=== PATIENT | female | born 1995 | race Caucasian/White ===

== ENCOUNTER 2023-09-08 14:36 | Inpatient (IN) | payer BC, OTHER ==
--- NOTE | 2023-09-08 14:59 | ED ---
General Adult HPI - General Chief complaint: Vaginal Bleeding Stated complaint: Abd pain Time Seen by Provider: 09/08/23 14:50 Source: patient Mode of arrival: ambulatory Limitations: no limitations - History of Present Illness Initial comments: Dictation was produced using [employer] dictation software. please excuse any grammatical, word or spelling errors. Chief Complaint: 28-year-old female presents with vaginal bleeding and pelvic pain History of Present Illness: 28-year-old female she is allegedly 11 weeks with twin gestation. She states that she had an ultrasound recently was told that there is a 20 gestation however 1 baby did not have a heartbeat. Started to have some bleeding and pelvic pain started yesterday. She complains that her pain is worse and it was yesterday but the bleeding has been improved. Her [facility] was booked and wasn't able to have an appointment with her. That's when she was referred to the [facility] for her initial evaluation by OB denies any fever or constitutional symptoms. 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 The ROS documented in this emergency department record has been reviewed and confirmed by me. Those systems with pertinent positive or negative responses have been documented in the HPI. All other systems are other negative and/or noncontributory. - Related Data Home Medications Medication Instructions Recorded Confirmed No Known Home Medications 09/08/23 09/08/23 Allergies Allergy/AdvReac Type Severity Reaction Status Date / Time Sulfa (Sulfonamide Allergy Rash/Hives, Verified 09/08/23 18:13 Antibiotics) swelling Review of Systems ROS Statement: Those systems with pertinent positive or pertinent negative responses have been documented in the HPI. ROS Other: All systems not noted in ROS Statement are negative. Past Medical History Additional Past Medical History / Comment(s): traumatic brain injury History of Any Multi-Drug Resistant Organisms: None Reported Past Surgical History: No Surgical Hx Reported Smoking Status: Never smoker Past Alcohol Use History: None Reported Past Drug Use History: None Reported General Exam - General Exam Comments Initial Comments: PHYSICAL EXAM: General Impression: Alert and oriented x3, not in acute distress HEENT: Normocephalic atraumatic, extra-ocular movements intact, pupils equal and reactive to light bilaterally, mucous membranes moist. Cardiovascular: Heart regular rate and rhythm Chest: Able to complete full sentences, no retractions, no tachypnea Abdomen: abdomen soft, mild tenderness to the lower abdomen, non-distended, no organomegaly Musculoskeletal: Pulses present and equal in all extremities, no peripheral edema Motor: no focal deficits noted Neurological: CN II-XII grossly intact, no focal motor or sensory deficits noted Skin: Intact with no visualized rashes Psych: Anxious Limitations: no limitations Course Vital Signs 09/08/23 09/08/23 09/08/23 14:40 15:00 15:01 Temperature 99.7 F H Pulse Rate 140 H 124 H 121 H Respiratory 24 22 Rate Blood Pressure 97/60 99/73 90/60 O2 Sat by Pulse 100 99 99 Oximetry 09/08/23 09/08/23 09/08/23 15:15 15:30 15:45 Temperature Pulse Rate 114 H 120 H 113 H Respiratory 10 L 21 18 Rate Blood Pressure 90/60 92/54 95/63 O2 Sat by Pulse 99 99 99 Oximetry 09/08/23 09/08/23 09/08/23 16:00 16:15 16:30 Temperature Pulse Rate 102 H 113 H Respiratory 13 15 Rate Blood Pressure 93/60 92/54 98/61 O2 Sat by Pulse 98 99 Oximetry 09/08/23 09/08/23 09/08/23 17:15 17:29 18:00 Temperature Pulse Rate 103 H 97 Respiratory 26 H 17 Rate Blood Pressure 74/49 73/39 79/36 O2 Sat by Pulse Oximetry 09/08/23 18:30 Temperature Pulse Rate Respiratory Rate Blood Pressure 84/62 O2 Sat by Pulse Oximetry - Reevaluation(s) Reevaluation #1: 09/08/23 17:40 I was notified by nurse and approximately 5:30 PM that patient's blood pressure was 73/39. Patient ordered for more fluids. She is reevaluated at the bedside states that her pain is significantly improved. She is resting comfortably no acute distress. Patient will be further resuscitated Reevaluation #2: 09/08/23 19:21 Patient's blood pressure was monitored following that low blood pressure management. Patient resting comfortably states that her pain is improved. Repeat labs were performed. Lactic acidosis improved to 2.5. There is no anion gap. Urinalysis suggests urinary tract infection. Patient treated with ceftriaxone. Medical Decision Making - Medical Decision Making Was pt. sent in by a medical professional or institution (Dr., PA, CLINICAL DATA ABSTRACTOR, urgent care, hospital, or usp...) When possible be specific @ -No Did you speak to anyone other than the patient for history (EMS, parent, family, police, friend...)? What history was obtained from this source @ -No Did you review nursing and triage notes (agree or disagree)? Why? @ -I reviewed and agree with nursing and triage notes Were old charts reviewed (outside hosp., previous admission, EMS record, old EKG, old radiological studies, urgent care reports/EKG's, usp records)? Report findings @ -No old charts were reviewed Differential Diagnosis (chest pain, altered mental status, abdominal pain women, abdominal pain men, vaginal bleeding, musculoskeletal, weakness, fever, dyspnea, syncope, headache, dizziness, GI bleed, back pain, seizure, CVA, palpatations, mental health)? @ -Differential Abdominal Pain Women: Appendicitis, Cholecystitis, diverticulosis, ischemic bowel, pancreatitis, hepatitis, UTI, gastroenteritis, AAA, incarcerated hernia, bowel obstruction, constipation, inflammatory bowel, hepatitis, peptic ulcer disease, splenic infarction, perforated viscus, vulvitis, ovarian torsion, PID, kidney stone, placenta abruption, this is not meant to be an all-inclusive list EKG interpreted by me (3pts min.). @ -None done X-rays interpreted by me (1pt min.). @ -None done CT interpreted by me (1pt min.). @ -None done U/S interpreted by me (1pt. min.). @ -None interpreted by me What testing was considered but not performed or refused? (CT, X-rays, U/S, labs)? Why? @ -None What meds were considered but not given or refused? Why? @ -None Did you discuss the management of the patient with other professionals (professionals i.e. JUAN Chavez, CLINICAL DATA ABSTRACTOR, lab, RT, psych nurse, clinical social work therapist, education site manager, teacher, patient transport officer, case managers)? Give summary @ -Case discussed with Dr. Tai for admission Was smoking cessation discussed for >3mins.? @ -No Was critical care preformed (if so, how long)? @ -No Were there social determinants of health that impacted care today? How? (Homelessness, low income, unemployed, alcoholism, drug addiction, transportation, low edu. Level, literacy, decrease access to med. care, retirement, rehab)? @ -No Was there de-escalation of care discussed even if they declined (Discuss DNR or withdrawal of care, Hospice)? DNR status @ -No What co-morbidities impacted this encounter? (DM, HTN, Smoking, COPD, CAD, Cancer, CVA, ARF, Chemo, Hep., AIDS, mental health diagnosis, sleep apnea, morbid obesity)? @ -None Was patient admitted / discharged? Hospital course, mention meds given and route, prescriptions, significant lab abnormalities, going to OR and other pertinent info. @ -8-year-old female presents to the emergency department for vaginal bleeding, pelvic cramping. She is allegedly 10 or 11 weeks with twin gestation. Vital signs upon arrival was soft. Her blood pressure started to go down slightly. Skin fluids and responded. CBC is unremarkable. Hemoglobin stable. Metabolic panel shows initial lactic acid level V.7 with anion gap acidosis. Beta Quant is 116. Urinalysis consistent with urinary tract infection given positive nitrates and elevated white blood cells. Patient given antibiotics. ultrasound shows no IUP. There is questionable yolk sac.. Patient be admitted for monitoring to observation. Undiagnosed new problem with uncertain prognosis? @ -No Drug Therapy requiring intensive monitoring for toxicity (Heparin, Nitro, Insul in, Cardizem)? @ -No Were any procedures done? @ -No Diagnosis/symptom? Acute, or Chronic, or Acute on Chronic? Uncomplicated (without systemic symptoms) or Complicated (systemic symptoms)? @ -Lactic acidosis, UTI, miscarriage Side effects of treatment? @ -No Exacerbation, Progression, or Severe Exacerbation? @ -No Poses a threat to life or bodily function? How? (Chest pain, [place], [place], pneumonia, PE, COPD, DKA, ARF, appy, cholecystitis, CVA, Diverticulitis, Homicidal, Suicidal, threat to staff... and all critical care pts) @ -yes - Lab Data Result diagrams: 09/08/23 15:00 09/08/23 18:15 Lab Results 09/08/23 09/08/23 09/08/23 Range/Units 14:55 15:00 15:00 WBC 4.3 (3.8-10.6) k/uL RBC 4.05 (3.80-5.40) m/uL Hgb 12.0 (11.4-16.0) gm/dL Hct 35.6 (34.0-46.0) % MCV 87.7 (80.0-100.0) fL MCH 29.6 (25.0-35.0) pg MCHC 33.7 (31.0-37.0) g/dL RDW 13.8 (11.5-15.5) % Plt Count 133 L (150-450) k/uL MPV 7.2 Neutrophils % 94 % Lymphocytes % 4 % Monocytes % 2 % Eosinophils % 0 % Basophils % 0 % Neutrophils # 4.0 (1.3-7.7) k/uL Lymphocytes # 0.2 L (1.0-4.8) k/uL Monocytes # 0.1 (0-1.0) k/uL Eosinophils # 0.0 (0-0.7) k/uL Basophils # 0.0 (0-0.2) k/uL Manual Slide Review Performed PT (10.0-12.5) sec INR (<1.2) APTT (22.0-30.0) sec Sodium 136 L (137-145) mmol/L Potassium 3.4 L (3.5-5.1) mmol/L Chloride 104 (98-107) mmol/L Carbon Dioxide 14 L (22-30) mmol/L Anion Gap 18 mmol/L BUN 15 (7-17) mg/dL Creatinine 0.87 (0.52-1.04) mg/dL Est GFR (CKD-EPI)AfAm >90 (>60 ml/min/1.73 sqM) Est GFR (CKD-EPI)NonAf >90 (>60 ml/min/1.73 sqM) Glucose 105 H (74-99) mg/dL Lactic Ac Sepsis Rflx Plasma Lactic Acid Chadwick (0.7-2.0) mmol/L Calcium 8.4 (8.4-10.2) mg/dL Magnesium 1.5 L (1.6-2.3) mg/dL Total Bilirubin 0.7 (0.2-1.3) mg/dL AST 90 H (14-36) U/L ALT 60 H (4-34) U/L Alkaline Phosphatase 113 (38-126) U/L Total Protein 6.0 L (6.3-8.2) g/dL Albumin 3.3 L (3.5-5.0) g/dL HCG, Quant mIU/mL Urine Color Urine Appearance (Clear) Urine pH (5.0-8.0) Ur Specific [place] (1.001-1.035) Urine Protein (Negative) Urine Glucose (UA) (Negative) Urine Ketones (Negative) Urine Blood (Negative) Urine Nitrite (Negative) Urine Bilirubin (Negative) Urine Urobilinogen (<2.0) mg/dL Ur Leukocyte Esterase (Negative) Urine RBC (0-5) /hpf Urine WBC (0-5) /hpf Ur Squamous Epith Cells (0-4) /hpf Urine Bacteria (None) /hpf Blood Type O Positive Blood Type Confirm Blood Type Recheck No Previous Record Bld Type Recheck Status CABO Indicated Antibody Screen NEGATIVE Spec Expiration Date 09/11/2023 - 235409/08/23 09/08/23 09/08/23 Range/Units 15:00 15:00 15:00 WBC (3.8-10.6) k/uL RBC (3.80-5.40) m/uL Hgb (11.4-16.0) gm/dL Hct (34.0-46.0) % MCV (80.0-100.0) fL MCH (25.0-35.0) pg MCHC (31.0-37.0) g/dL RDW (11.5-15.5) % Plt Count (150-450) k/uL MPV Neutrophils % % Lymphocytes % % Monocytes % % Eosinophils % % Basophils % % Neutrophils # (1.3-7.7) k/uL Lymphocytes # (1.0-4.8) k/uL Monocytes # (0-1.0) k/uL Eosinophils # (0-0.7) k/uL Basophils # (0-0.2) k/uL Manual Slide Review PT 12.2 (10.0-12.5) sec INR 1.1 (<1.2) APTT 27.3 (22.0-30.0) sec Sodium (137-145) mmol/L Potassium (3.5-5.1) mmol/L Chloride (98-107) mmol/L Carbon Dioxide (22-30) mmol/L Anion Gap mmol/L BUN (7-17) mg/dL Creatinine (0.52-1.04) mg/dL Est GFR (CKD-EPI)AfAm (>60 ml/min/1.73 sqM) Est GFR (CKD-EPI)NonAf (>60 ml/min/1.73 sqM) Glucose (74-99) mg/dL Lactic Ac Sepsis Rflx Plasma Lactic Acid Chadwick 5.7 H* (0.7-2.0) mmol/L Calcium (8.4-10.2) mg/dL Magnesium (1.6-2.3) mg/dL Total Bilirubin (0.2-1.3) mg/dL AST (14-36) U/L ALT (4-34) U/L Alkaline Phosphatase (38-126) U/L Total Protein (6.3-8.2) g/dL Albumin (3.5-5.0) g/dL HCG, Quant mIU/mL Urine Color Yellow Urine Appearance Cloudy H (Clear) Urine pH 6.0 (5.0-8.0) Ur Specific [place] 1.006 (1.001-1.035) Urine Protein 1+ H (Negative) Urine Glucose (UA) Negative (Negative) Urine Ketones Negative (Negative) Urine Blood Large H (Negative) Urine Nitrite Positive H (Negative) Urine Bilirubin Negative (Negative) Urine Urobilinogen <2.0 (<2.0) mg/dL Ur Leukocyte Esterase Moderate H (Negative) Urine RBC >182 H (0-5) /hpf Urine WBC 29 H (0-5) /hpf Ur Squamous Epith Cells 1 (0-4) /hpf Urine Bacteria Moderate H (None) /hpf Blood Type Blood Type Confirm Blood Type Recheck Bld Type Recheck Status Antibody Screen Spec Expiration Date 09/08/23 09/08/23 09/08/23 Range/Units 15:00 15:01 16:00 WBC (3.8-10.6) k/uL RBC (3.80-5.40) m/uL Hgb (11.4-16.0) gm/dL Hct (34.0-46.0) % MCV (80.0-100.0) fL MCH (25.0-35.0) pg MCHC (31.0-37.0) g/dL RDW (11.5-15.5) % Plt Count (150-450) k/uL MPV Neutrophils % % Lymphocytes % % Monocytes % % Eosinophils % % Basophils % % Neutrophils # (1.3-7.7) k/uL Lymphocytes # (1.0-4.8) k/uL Monocytes # (0-1.0) k/uL Eosinophils # (0-0.7) k/uL Basophils # (0-0.2) k/uL Manual Slide Review PT (10.0-12.5) sec INR (<1.2) APTT (22.0-30.0) sec Sodium (137-145) mmol/L Potassium (3.5-5.1) mmol/L Chloride (98-107) mmol/L Carbon Dioxide (22-30) mmol/L Anion Gap mmol/L BUN (7-17) mg/dL Creatinine (0.52-1.04) mg/dL Est GFR (CKD-EPI)AfAm (>60 ml/min/1.73 sqM) Est GFR (CKD-EPI)NonAf (>60 ml/min/1.73 sqM) Glucose (74-99) mg/dL Lactic Ac Sepsis Rflx Y Plasma Lactic Acid Chadwick (0.7-2.0) mmol/L Calcium (8.4-10.2) mg/dL Magnesium (1.6-2.3) mg/dL Total Bilirubin (0.2-1.3) mg/dL AST (14-36) U/L ALT (4-34) U/L Alkaline Phosphatase (38-126) U/L Total Protein (6.3-8.2) g/dL Albumin (3.5-5.0) g/dL HCG, Quant 116.5 mIU/mL Urine Color Urine Appearance (Clear) Urine pH (5.0-8.0) Ur Specific [place] (1.001-1.035) Urine Protein (Negative) Urine Glucose (UA) (Negative) Urine Ketones (Negative) Urine Blood (Negative) Urine Nitrite (Negative) Urine Bilirubin (Negative) Urine Urobilinogen (<2.0) mg/dL Ur Leukocyte Esterase (Negative) Urine RBC (0-5) /hpf Urine WBC (0-5) /hpf Ur Squamous Epith Cells (0-4) /hpf Urine Bacteria (None) /hpf Blood Type Blood Type Confirm O Positive Blood Type Recheck Bld Type Recheck Status Antibody Screen Spec Expiration Date 09/08/23 09/08/23 Range/Units 18:01 18:15 WBC (3.8-10.6) k/uL RBC (3.80-5.40) m/uL Hgb (11.4-16.0) gm/dL Hct (34.0-46.0) % MCV (80.0-100.0) fL MCH (25.0-35.0) pg MCHC (31.0-37.0) g/dL RDW (11.5-15.5) % Plt Count (150-450) k/uL MPV Neutrophils % % Lymphocytes % % Monocytes % % Eosinophils % % Basophils % % Neutrophils # (1.3-7.7) k/uL Lymphocytes # (1.0-4.8) k/uL Monocytes # (0-1.0) k/uL Eosinophils # (0-0.7) k/uL Basophils # (0-0.2) k/uL Manual Slide Review PT (10.0-12.5) sec INR (<1.2) APTT (22.0-30.0) sec Sodium 138 (137-145) mmol/L Potassium 3.0 L (3.5-5.1) mmol/L Chloride 109 H (98-107) mmol/L Carbon Dioxide 20 L (22-30) mmol/L Anion Gap 9 mmol/L BUN 16 (7-17) mg/dL Creatinine 0.91 (0.52-1.04) mg/dL Est GFR (CKD-EPI)AfAm >90 (>60 ml/min/1.73 sqM) Est GFR (CKD-EPI)NonAf 87 (>60 ml/min/1.73 sqM) Glucose 99 (74-99) mg/dL Lactic Ac Sepsis Rflx Plasma Lactic Acid Chadwick 2.5 H* (0.7-2.0) mmol/L Calcium 7.2 L (8.4-10.2) mg/dL Magnesium (1.6-2.3) mg/dL Total Bilirubin (0.2-1.3) mg/dL AST (14-36) U/L ALT (4-34) U/L Alkaline Phosphatase (38-126) U/L Total Protein (6.3-8.2) g/dL Albumin (3.5-5.0) g/dL HCG, Quant mIU/mL Urine Color Urine Appearance (Clear) Urine pH (5.0-8.0) Ur Specific [place] (1.001-1.035) Urine Protein (Negative) Urine Glucose (UA) (Negative) Urine Ketones (Negative) Urine Blood (Negative) Urine Nitrite (Negative) Urine Bilirubin (Negative) Urine Urobilinogen (<2.0) mg/dL Ur Leukocyte Esterase (Negative) Urine RBC (0-5) /hpf Urine WBC (0-5) /hpf Ur Squamous Epith Cells (0-4) /hpf Urine Bacteria (None) /hpf Blood Type Blood Type Confirm Blood Type Recheck Bld Type Recheck Status Antibody Screen Spec Expiration Date Disposition Clinical Impression: Miscarriage Disposition: ADMITTED IP TO THIS [facility] Condition: Fair Referrals: Nonstaff,Physician [Primary Care Provider] - 1-2 days Decision Time: 18:00
[2023-09-08 15:19] LABS: Basophils % (A) 0 %; Eosinophils % (A) 0 %; HCT 35.6 % (34.0-46.0); Lymphocytes # (A) 0.2 k/uL (1.0-4.8); Lymphocytes % (A) 4 %; MCH 29.6 pg (25.0-35.0); MCHC 33.7 g/dL (31.0-37.0); MCV 87.7 fL (80.0-100.0); Mean Platelet Volume 7.2; Monocytes # (A) 0.1 k/uL (0-1.0); Monocytes % (A) 2 %; Neutrophils % (A) 94 %; Platelet Count 133 k/uL (150-450); RBC 4.05 m/uL (3.80-5.40); RDW 13.8 % (11.5-15.5); WBC 4.3 k/uL (3.8-10.6)
[2023-09-08 15:28] LABS: AST 90 U/L (14-36); African American GFR (CKD) >90 (>60 ml/min/1.73 sqM); Albumin 3.3 g/dL (3.5-5.0); Alkaline Phosphatase 113 U/L (38-126); Anion Gap 18 mmol/L; Blood Urea Nitrogen 15 mg/dL (7-17); Calcium 8.4 mg/dL (8.4-10.2); Carbon Dioxide 14 mmol/L (22-30); Chloride 104 mmol/L (98-107); Glucose 105 mg/dL (74-99); INR 1.1 (<1.2); Magnesium 1.5 mg/dL (1.6-2.3); Non-African American GFR(CKD) >90 (>60 ml/min/1.73 sqM); Potassium 3.4 mmol/L (3.5-5.1); Sodium 136 mmol/L (137-145); Total Bilirubin 0.7 mg/dL (0.2-1.3)
[2023-09-08 15:29] LABS: Partial Thromboplastin Time 27.3 sec (22.0-30.0); Prothrombin Time 12.2 sec (10.0-12.5)
[2023-09-08] MEDS ORDERED: SODIUM CHLORIDE 0.9% 1,000 ML IV STA ×2 (16:10→17:31)
[2023-09-08 16:15] LABS: ALT 60 U/L (4-34)
--- NOTE | 2023-09-08 16:55 | US ---
EXAMINATION TYPE: Transabdominal DATE OF EXAM: 09/08/2023 3:45 PM COMPARISON: NONE CLINICAL INDICATION: Female, 28 years old with history of pelvic pain, vaginal bleeding, history of t wins; Bleeding since last noght passed many clots. EXAM PERFORMED: Transabdominal (TA) EXAM MEASUREMENTS: GESTATIONAL AGE / DATING Physician Established: Not yet established Dates by LMP: LMP unknown Dates by First Scan: No previous this is first scan Dates by Current Scan for: No IUP seen at this time MATERNAL ANATOMY Uterus: 10.9 x 6.4 x 5.6 cm Right Ovary: Obscured by bowel gas Left Ovary: Obscured by bowel gas Post CDS / Adnexa: wnl Presence of free fluid: no Presence of corpus luteal cyst: no Presence of subchorionic bleed: no GESTATION / SURVEY IUP: No IUP seen at this time Yolk sac may be present. Follow-up is recommended Beta HcG (if available): Not available at this time IMPRESSION: Yolk sac may be present within a gestational sac within the uterus. pole is not identified. Cor relation with beta-hCG and follow-up is recommended.
[2023-09-08] MEDS ORDERED: NALOXONE 0.4 MG/ML 1 ML VIAL IV PRN (17:27)
[2023-09-08] MEDS: SODIUM CHLORIDE 0.9% 1,000 ML IV SCH (17:33)
[2023-09-08 18:37] LABS: African American GFR (CKD) >90 (>60 ml/min/1.73 sqM); Anion Gap 9 mmol/L; Blood Urea Nitrogen 16 mg/dL (7-17); Carbon Dioxide 20 mmol/L (22-30); Chloride 109 mmol/L (98-107); Glucose 99 mg/dL (74-99); Non-African American GFR(CKD) 87 (>60 ml/min/1.73 sqM); Sodium 138 mmol/L (137-145)
[2023-09-08 18:38] LABS: Calcium 7.2 mg/dL (8.4-10.2)
[2023-09-08 18:52] LABS: Appearance,Urine Cloudy (Clear); Bacteria,Urine Moderate /hpf; Bilirubin,Urine Negative (Negative); Blood,Urine Large (Negative); Color,Urine Yellow; Glucose,Urine (UA) Negative (Negative); Ketones,Urine Negative (Negative); Leukocyte Esterase,Urine Moderate (Negative); Nitrite,Urine Positive (Negative); Protein,Urine 1+ (Negative); RBC,Urine >182 /hpf (0-5); Specific Gravity,Urine 1.006 (1.001-1.035); Squamous Epithelial Cell,Urine 1 /hpf (0-4); Urobilinogen,Urine <2.0 mg/dL (<2.0); WBC,Urine 29 /hpf (0-5)
[2023-09-08] MEDS ORDERED: cefTRIAXone IN SWFI 1,000 MG/10 ML SYRINGE IVP STA (19:21)
[2023-09-08] MEDS ORDERED: MAGNESIUM OXIDE 400 MG TAB PO STA (20:13)
[2023-09-08] MEDS ORDERED: CALCIUM GLUCONATE IN NACL 2 GM in SALINE 1 100ML.BAG IVPB ONE (20:14)
[2023-09-08] MEDS ORDERED: POTASSIUM CHLORIDE ER 20 MEQ TAB.ER PO STA (20:14)
[2023-09-08] MEDS ORDERED: ACETAMINOPHEN TAB 500 MG TAB PO STA (20:43)
[2023-09-09] MEDS: SODIUM CHLORIDE 0.9% 1,000 ML IV SCH ×3 (00:23→17:58)
--- NOTE | 2023-09-09 08:35 | P.HPOB ---
History of Present Illness H&P Date: 09/09/23 Chief Complaint: Incomplete 28 year old presents at 11 weeks with twin gestation after having vaginal bleeding at home. She says she started having vaginal bleeding yesterday and had excruciating pain as she notes she passed at least 1 of the gestational sacs. Beta-hCG is 116 her hemoglobin on admission was 12 and I will get another one right now. Ultrasound showed she still had a small gestational sac. Patient is currently having an increase in her cramping since admission and no increase in vaginal bleeding. Her bleeding has slowed significantly. Review of Systems All systems: negative Constitutional: Denies chills, Denies fever Eyes: denies blurred vision, denies pain Ears, nose, mouth and throat: Denies headache, Denies sore throat Cardiovascular: Denies chest pain, Denies shortness of breath Respiratory: Denies cough Gastrointestinal: Denies abdominal pain, Denies diarrhea, Denies nausea, Denies vomiting Genitourinary: Denies dysuria, Denies hematuria Musculoskeletal: Denies myalgias Integumentary: Denies pruritus, Denies rash Neurological: Denies numbness, Denies weakness Psychiatric: Denies anxiety, Denies depression Endocrine: Denies fatigue, Denies weight change Past Medical History Additional Past Medical History / Comment(s): traumatic brain injury. Patient has had 2 live births, 2 voluntary terminations and this is her first miscarriage. History of Any Multi-Drug Resistant Organisms: None Reported Past Surgical History: No Surgical Hx Reported Past Anesthesia/Blood Transfusion Reactions: No Reported Reaction Past Psychological History: Depression Smoking Status: Never smoker Past Alcohol Use History: None Reported Past Drug Use History: Methamphetamine Additional Drug Use History / Comment(s): pt states she last did Meth around 4 days ago Medications and Allergies Home Medications Medication Instructions Recorded Confirmed Type No Known Home Medications 09/08/23 09/08/23 History Allergies Allergy/AdvReac Type Severity Reaction Status Date / Time Sulfa (Sulfonamide Allergy Rash/Hives, Verified 09/08/23 18:13 Antibiotics) swelling Exam Osteopathic Statement: *. No significant issues noted on an osteopathic structural exam other than those noted in the History and Physical/Consult. Vital Signs Temp Pulse Pulse Resp BP BP Pulse Ox 09/09/23 07:54 87 09/09/23 07:53 98.7 F 88 18 92/60 99 09/09/23 04:00 80 16 95/61 100 09/09/23 00:00 84 16 91/56 98 09/08/23 22:09 98.2 F 78 16 85/57 99 09/08/23 21:40 98.7 F 09/08/23 21:01 97.3 F L 09/08/23 21:00 95 16 81/47 09/08/23 20:30 96 7 L 89/50 09/08/23 20:00 101 H 35 H 84/47 09/08/23 19:30 101 H 18 85/46 09/08/23 19:00 96 21 82/71 09/08/23 18:30 84/62 09/08/23 18:00 97 17 79/36 09/08/23 17:29 73/39 09/08/23 17:15 103 H 26 H 74/49 09/08/23 16:30 98/61 09/08/23 16:15 113 H 15 92/54 99 09/08/23 16:00 102 H 13 93/60 98 09/08/23 15:45 113 H 18 95/63 99 09/08/23 15:30 120 H 21 92/54 99 09/08/23 15:15 114 H 10 L 90/60 99 09/08/23 15:01 121 H 90/60 99 09/08/23 15:00 124 H 22 99/73 99 09/08/23 14:40 99.7 F H 140 H 24 97/60 100 Intake and Output 09/08/23 09/09/23 09/09/23 22:59 06:59 14:59 Other: Voiding Method Toilet Toilet Toilet # Voids 1 1 Weight 56.699 kg Heart: Regular rate and rhythm Lungs: Clear to auscultation bilaterally Abdomen: Soft, nontender Extremities: Negative Homans sign Bimanual exam reveals the cervix to be dilated 1 cm there is tissue sitting at the cervical os. Results Result Diagrams: 09/08/23 15:00 09/08/23 18:15 Abnormal Lab Results - Last 24 Hours (Table) 09/08/23 09/08/23 09/08/23 Range/Units 15:00 15:00 15:00 Plt Count 133 L (150-450) k/uL Lymphocytes # 0.2 L (1.0-4.8) k/uL Sodium 136 L (137-145) mmol/L Potassium 3.4 L (3.5-5.1) mmol/L Chloride (98-107) mmol/L Carbon Dioxide 14 L (22-30) mmol/L Glucose 105 H (74-99) mg/dL Plasma Lactic Acid Chadwick 5.7 H* (0.7-2.0) mmol/L Calcium (8.4-10.2) mg/dL Magnesium 1.5 L (1.6-2.3) mg/dL AST 90 H (14-36) U/L ALT 60 H (4-34) U/L Total Protein 6.0 L (6.3-8.2) g/dL Albumin 3.3 L (3.5-5.0) g/dL Urine Appearance (Clear) Urine Protein (Negative) Urine Blood (Negative) Urine Nitrite (Negative) Ur Leukocyte Esterase (Negative) Urine RBC (0-5) /hpf Urine WBC (0-5) /hpf Urine Bacteria (None) /hpf 09/08/23 09/08/23 09/08/23 Range/Units 15:00 18:01 18:15 Plt Count (150-450) k/uL Lymphocytes # (1.0-4.8) k/uL Sodium (137-145) mmol/L Potassium 3.0 L (3.5-5.1) mmol/L Chloride 109 H (98-107) mmol/L Carbon Dioxide 20 L (22-30) mmol/L Glucose (74-99) mg/dL Plasma Lactic Acid Chadwick 2.5 H* (0.7-2.0) mmol/L Calcium 7.2 L (8.4-10.2) mg/dL Magnesium (1.6-2.3) mg/dL AST (14-36) U/L ALT (4-34) U/L Total Protein (6.3-8.2) g/dL Albumin (3.5-5.0) g/dL Urine Appearance Cloudy H (Clear) Urine Protein 1+ H (Negative) Urine Blood Large H (Negative) Urine Nitrite Positive H (Negative) Ur Leukocyte Esterase Moderate H (Negative) Urine RBC >182 H (0-5) /hpf Urine WBC 29 H (0-5) /hpf Urine Bacteria Moderate H (None) /hpf Assessment and Plan (1) Incomplete Current Visit: Yes Status: Acute Code(s): O03.4 - INCOMPLETE SPONTANEOUS WITHOUT COMPLICATION SNOMED Code(s): 591136875 Plan: 1. Patient is actively miscarrying. She has had scant bleeding overnight. Her cervix is dilated and she is having some significant discomfort but patient refuses dilation and curettage at this time. I will try and keep her comfortable as she passes the tissue as long as she stays in a stable condition.
[2023-09-09] MEDS: KETOROLAC 15 MG/ML 1 ML VIAL IVP SCH ×4 (09:06→23:16)
[2023-09-09] MEDS: valACYclovir HCL 1,000 MG TABLET PO SCH (09:50)
[2023-09-09 10:07] LABS: HCT 30.4 % (34.0-46.0); HGB 10.1 gm/dL (11.4-16.0); MCH 29.8 pg (25.0-35.0); MCHC 33.4 g/dL (31.0-37.0); MCV 89.3 fL (80.0-100.0); RDW 14.1 % (11.5-15.5); WBC 4.7 k/uL (3.8-10.6)
[2023-09-09 10:40] LABS: Platelet Count 93 k/uL (150-450)
--- NOTE | 2023-09-09 13:27 | XR ---
EXAM: XR chest 1V portable CLINICAL INDICATION:Female, 28 years old with history of Dyspnea; PH[facility] COMPARISON: None. TECHNIQUE: Chest single view, portable AP upright FINDINGS: Lines/tubes/devices: EKG leads and other extrinsic structures overlie the chest. No indwelling lines are seen. Cardiomediastinum: Cardiac silhouette appears normal in size. Unremarkable mediastinal silhouette. Vasculature: No increased pulmonary vasculature. Lungs/pleura: Hazy opacity over both midlung zones is attributed most likely to overlying soft tissue attenuation a rtifact. Otherwise no focal consolidation, sizable pleural effusion, or pneumothorax is demonstrated. Bones/soft tissues: Bony thorax appears grossly intact as seen. Regional soft tissues appear unremarkable. IMPRESSION: No convincing evidence of an acute cardiopulmonary abnormality. Follow-up as clinically warranted.
[2023-09-09] MEDS: HYDROmorphone 1 MG/ML 1 ML SYRINGE IVP PRN (13:42)
[2023-09-10] MEDS: KETOROLAC 15 MG/ML 1 ML VIAL IVP SCH ×3 (06:23→18:12)
[2023-09-10] MEDS: HYDROmorphone 1 MG/ML 1 ML SYRINGE IVP PRN ×2 (08:29→21:53)
[2023-09-10] MEDS: valACYclovir HCL 1,000 MG TABLET PO SCH (08:29)
[2023-09-10] MEDS: SODIUM CHLORIDE 0.9% 1,000 ML IV SCH ×2 (08:29→18:19)
--- NOTE | 2023-09-10 09:10 | P.PN ---
Progress Note - Text Progress Note Date: 09/10/23 Patient has been in pain on and off all yesterday and last night. She is not requesting a D&C. Informed consent was obtained and all taken to the operating room later today as an add-on case for a suction D&C. Of note her blood cultures did come back with E. coli and ceftriaxone was started.
[2023-09-10 09:40] LABS: Basophils % (A) 0 %; Eosinophils # (A) 0.1 k/uL (0-0.7); Eosinophils % (A) 2 %; HCT 30.7 % (34.0-46.0); HGB 10.2 gm/dL (11.4-16.0); Lymphocytes # (A) 1.1 k/uL (1.0-4.8); Lymphocytes % (A) 18 %; MCH 29.6 pg (25.0-35.0); MCHC 33.1 g/dL (31.0-37.0); MCV 89.4 fL (80.0-100.0); Mean Platelet Volume 8.3; Monocytes # (A) 0.3 k/uL (0-1.0); Monocytes % (A) 5 %; Neutrophils # (A) 4.2 k/uL (1.3-7.7); Neutrophils % (A) 71 %; Platelet Count 115 k/uL (150-450); RBC 3.44 m/uL (3.80-5.40); RDW 14.1 % (11.5-15.5); WBC 5.9 k/uL (3.8-10.6)
[2023-09-10 10:01] LABS: African American GFR (CKD) >90 (>60 ml/min/1.73 sqM); Anion Gap 7 mmol/L; Blood Urea Nitrogen 15 mg/dL (7-17); Calcium 7.9 mg/dL (8.4-10.2); Carbon Dioxide 16 mmol/L (22-30); Chloride 113 mmol/L (98-107); Glucose 80 mg/dL (74-99); Non-African American GFR(CKD) >90 (>60 ml/min/1.73 sqM); Potassium 4.1 mmol/L (3.5-5.1); Sodium 136 mmol/L (137-145)
[2023-09-10] MEDS ORDERED: ONDANSETRON 4 MG/2 ML VIAL ONE (14:25)
[2023-09-10] MEDS ORDERED: LIDOCAINE 1% INJ 10MG/ML (20 ML MDV) ONE (14:33)
[2023-09-10] MEDS ORDERED: MIDAZOLAM 2 MG/2 ML VIAL IVP ONE (14:33)
[2023-09-10] MEDS ORDERED: fentaNYL (PF) 50 MCG/ML 2 ML AMP ONE (14:33)
[2023-09-10] MEDS ORDERED: PROPOFOL 10 MG/ML 20 ML VIAL IV ONE (14:33)
[2023-09-10] MEDS ORDERED: MIDAZOLAM 2 MG/2 ML VIAL ONE (14:33)
[2023-09-10] MEDS ORDERED: KETOROLAC 15 MG/ML 1 ML VIAL ONE (14:33)
[2023-09-10] MEDS ORDERED: PHENYLEPHRINE-0.9% NACL SYG 1,000 MCG/10 ML SYRINGE ONE (14:33)
[2023-09-10] MEDS ORDERED: LACTATED RINGERS 1,000 ML IV ONE (14:34)
[2023-09-11] MEDS: KETOROLAC 15 MG/ML 1 ML VIAL IVP SCH ×3 (00:06→11:53)
[2023-09-11] MEDS: SODIUM CHLORIDE 0.9% 1,000 ML IV SCH ×2 (03:35→09:28)
--- NOTE | 2023-09-11 09:00 | P.DS ---
Providers Date of admission: 09/08/23 17:27 Expected date of discharge: 09/11/23 Attending physician: Fariha Tai Primary care physician: Physician Nonstalamin Hospital Course: This is a 28-year-old female 5 para 2 who presented to the emergency room with an 11 week twin gestation and passed one of the fetuses. She initially declined a D&C but yesterday did agree to have a D&C for the remaining tissue. She was also found to have E. coli on her blood cultures and was started on ceftriaxone every 24 hours. She will have 1 more dose of this this morning. Her pain has been fairly well-controlled since D&C. Bleeding has been minimal. She denies any current complaints. She has also has been afebrile and has a normal white count. Vital signs are stable. Abdomen is soft with minimal tenderness in her lower quadrants. She will be discharged home on cephalexin 500 mg 4 times a day for 7 days. She is advised to follow up with Dr. Tai in the office in 1 month. She is advised to call the office if she has any further questions or concerns prior to her appointment time. She is advised that she can use [id number] ibuprofen or Tylenol as needed for pain. Patient Condition at Discharge: Stable Plan - Discharge Summary Discharge Rx Participant: No New Discharge Prescriptions: New Cephalexin [Keflex] 500 mg PO Q6HR 7 Days #28 cap Discharge Medication List Cephalexin [Keflex] 500 mg PO Q6HR 7 Days #28 cap 09/11/23 [Rx] Follow up Appointment(s)/Referral(s): Nonstaff,Physician [Primary Care Provider] - 1-2 days Fariha Tai DO [Doctor of Osteopathic Medicine] - 4 Weeks Activity/Diet/Wound Care/Special Instructions: Activity as tolerated. Diet as tolerated. May shower, but no tub baths for 1 week. No intercourse until seen by Dr. Tai. Discharge Disposition: HOME SELF-CARE
[2023-09-11] MEDS: valACYclovir HCL 1,000 MG TABLET PO SCH (09:27)
[2023-09-11 09:36] VITALS: BP 111/73; PULSE 83; RESP 20; TEMP 98.2
--- NOTE | 2023-09-11 13:32 | CDI ---
Documentation Clarification Form Date: 09/11/2023 01:07:40 PM From: Maribeth Retana RN, CCDS Email: [email or web address] Admit Date: 09/08/2023 05:27:00 PM Patient Name: Socorro Maya Visit Number: [id number] Discharge Date: ATTENTION: The Clinical Documentation Specialists (CDI) and [facility] Coding Staff appreciate your assistance in clarifying documentation. Please respond to the clarification below the line at the bottom and electronically sign. The CDI & [facility] Coding staff will review the response and follow-up if needed. Please note: Queries are made part of the Legal Health Record. If you have any questions, please contact the author of this message via ITS. Dr. Fariha Tai Your patient is receiving IV antibiotics, had low blood pressure, elevated lactic acid and +UA. Please clarify what condition/diagnosis is being treated. History/Risk Factors: 28-year-old with history of HSV, depression and presented with 11 weeks twin gestation after having vaginal bleeding at home. Admitted with incomplete . S/P D&C. Clinical Indicators: ED: "Urinalysis consistent with urinary tract infection given positive nitrates and elevated white blood cells." Discharge summary: "She was also found to have E. coli on her blood cultures and was started on ceftriaxone every 24 hours." 09/08 Lactic acid: 5.7-2.5-1.7-1.4 09/08 UA: cloudy, +nitrites, moderate leukocyte esterase, 29 WBCs and moderate bacteria 09/08 Blood cultures: Escherichia coli 09/08 Vital signs: Temp 99.7-97.3, HR 140-95, RR 35-7, BP 97/60-73/39 Treatment: s/p D&C Antibiotics: IV Rocephin 1000mg x1 on 09/08 then 2gm Q24H 09/08-09/11; Valtrex 1000mg po daily 09/09-09/11 IV Bolus: 0.9 NS 1L IV bolus x2 on 09/08 then 130mL/hr What diagnosis are you treating with IV antibiotics: [ ] Sepsis due to UTI [x] UTI [ ] No additional diagnosis [ ] Other, please specify [ ] Unable to determine MTDD
== END 2023-09-11 13:20 | disposition home or self-care (01) | DRG 543 ==
LOC: EC 14:36 → OBSVTOIN 17:27 → 3SCARD 17:27
PROVIDERS: ADMIT Obstetrics & Gynecology; ATTEND Obstetrics & Gynecology
PROC: 10D17ZZ Extraction of Products of Conception, Retained, Via Natural or Artificial Opening (ICD-10-PCS; principal; 2023-09-08)
DX: O03.4 Incomplete spontaneous abortion without complication (principal); N39.0 Urinary tract infection, site not specified; O30.001 Twin pregnancy, unspecified number of placenta and unspecified number of amniotic sacs, first trimester; F32.A Depression, unspecified; B00.9 Herpesviral infection, unspecified; B96.20 Unspecified Escherichia coli [E. coli] as the cause of diseases classified elsewhere; Z88.2 Allergy status to sulfonamides; Z87.820 Personal history of traumatic brain injury
CPT/HCPCS: 36415; 71045; 76801; 80048; 80053; 81001; 83605; 83735; 84702; 85025; 85027; 85610; 85730; 86850; 86900; 86901; 87040; 87077; 87186; 88305; 96361; 96365; 96374; 96375; 99285